=== PATIENT | male | born 1945 | race Caucasian/White ===

== ENCOUNTER 2020-08-04 10:17 | Day surgery (SDC) | payer OTHER ==
[~2020-08-04] VITALS: Ht 182.9 cm; Wt 127.0 kg
[~2020-08-04 10:17] MED LIST: ATROVENT 0.02%2.5 ML UPD; BAYER CHEWABLE81 MG PO; BETAPACE 80 MG80 MG PO; CARDIZEM120 MG PO; CELEXA40 MG PO; COUMADIN5 MG PO; DIABETA1.25 MG PO; GLUCOPHAGE1000 MG PO; HYDROCODONE-AP120 ML PO; HYDROCODONE/ACETAMIN; LANTUS INS100 UNITS/ SC; LANTUS SOL100 UNIT/1; LASIX20 MG; LIPITOR40 MG PO; NEURONTIN 100100 MG PO; NEURONTIN600 MG PO; PROTONIX40 MG PO; PROVENTIL/2.5 MG/3 M INH; XOPENEX 1.1.25 MG/3 UPD
[2020-08-04 10:42] LABS: BASOPHILS 0.2 % (0-2); EOSINOPHILS 3.1 % (0-7); HEMATOCRIT 44.8 % (42.0-54.0); HEMOGLOBIN 14.1 g/dL (13.5-17.5); IMMATURE GRANULOCYTES 0.2 % (0-5); LYMPHOCYTE ABS# 1.15 10x3/uL (1.32-3.57); LYMPHOCYTES 13.5 % (15-50); MCH 26.8 pg (26.0-34.0); MCHC 31.5 g/dL (31.0-37.0); MEAN PLATELET VOLUME 9.5 fL (7.4-10.4); MONOCYTES 7.8 % (2-11); NEUTROPHILS 75.2 % (40-80); PLATELET COUNT 196 10x3/uL (130-400); RBC 5.27 10x6/uL (4.20-6.10); RDW 14.6 % (11.5-14.5); WBC 8.5 10x3/uL (4.8-10.8)
[2020-08-04 10:50] LABS: ANION GAP 9.9 mmol/L (8-16); CALCIUM 8.7 mg/dL (8.5-10.1); CARBON DIOXIDE 29.2 mmol/L (21.0-32.0); CREATININE - SERUM 1.9 mg/dL (0.6-1.3); POTASSIUM - SERUM 4.1 mmol/L (3.5-5.1)
[2020-08-04 11:51] VITALS: BP 139/75; Ht 182.9 cm; Wt 127.0 kg
[2020-08-04] MEDS ORDERED: TARCEVA100 MG SC (12:15)
[2020-08-04] MEDS ORDERED: HYDROCODON-ACE1 EA10 PO (15:51)
[2020-08-04] MEDS ORDERED: BACTRIM DS TAB1 EAC1 PO (15:51)
--- NOTE | 2020-08-05 10:22 | OP ---
PATIENT NAME: LILIANA WILLIS MEDICAL RECORD: [id number] :49 LOCATION:D.OPS ADMISSION DATE: SURGEON: MARLY SOLITARIO DO DATE OF OPERATION: 08/04/2020 PROCEDURE PERFORMED: Right foot incision and debridement with Kerecis and wound VAC application. 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 INDICATIONS: Mr. Willis is a 75-year-old male who has I and D's of his foot. He is severely neuropathic and does not feel anything on the bottom of his foot. He had a 3 x 3 x 1 cm ulcer on the plantar surface of the foot. It was not healing. He was sent to me. I told him we could try some Kerecis and see if we get it to heal. He was informed of the risks of this including infection, bleeding, damage to nerves and vessels, need for further surgery, continued pain, nonhealing wound, need for below-knee amputation and even and he signed the consent. SURGEON: Marly Solitario DO DESCRIPTION OF PROCEDURE: The patient was taken to the operative suite, laid in supine position, given general anesthetic and LMA was placed. The right lower extremity was prepped and draped in sterile fashion. A timeout was performed. Everyone was in agreement of the correct side, site, patient and procedure. I then began by taking a #15 blade scalpel and going around the edge of the ulcer and getting a bleeding surface on the edge. I then used curettes and curetted out the ulcer itself on the bed and got good bleeding. I then irrigated with 2 liters normal saline and put in a 3 x 5 Kerecis and 3 x 7 Kerecis. I trimmed part of the 3 x 7 and stuffed it into the wound, it measured 3 x 3 x 1 cm. I then sutured it in with 4-0 Monocryl in a running stitch. I then dried and put Cavilon and then a Prevena Plus back on and secured into place. He was then wrapped with an Gama wrap. He was awakened and taken to recovery in stable condition. BLOOD LOSS: Minimal. COMPLICATIONS: None. TRANSINT:[id number] Voice Confirmation ID: [id number] DOCUMENT ID: [id number] MARLY SOLITARIO, at 1022 CC: [id number] DICTATION DATE: 08/04/20 1718 BUSINESS CENTER ATTENDANT: 08/05/20 0206 [facility] 08/04/[id number] [place] [address]
== END 2020-08-04 18:40 | disposition home or self-care (01) ==
LOC: D.OPS 10:17
PROVIDERS: Anesthesiology; ATTEND Orthopaedic Surgery
DX: L97.419 Non-pressure chronic ulcer of right heel and midfoot with unspecified severity (principal); M79.671 Pain in right foot; M14.671 Charcot's joint, right ankle and foot; E11.9 Type 2 diabetes mellitus without complications; I10 Essential (primary) hypertension

== ENCOUNTER → 2020-09-11 10:31 | Day surgery (SDC) | payer OTHER ==
[~2020-09-11] VITALS: Ht 182.9 cm; Wt 127.0 kg
[~2020-09-11 10:31] MED LIST changes: +BACTRIM DS TAB1 EAC1 PO; +BAYER CHEWABLE81 MG; +HYDROCODON-ACE1 EA10 PO; +TARCEVA100 MG SC
[2020-09-11 11:20] LABS: BASOPHILS 0.4 % (0-2); EOSINOPHILS 1.8 % (0-7); HEMATOCRIT 45.1 % (42.0-54.0); HEMOGLOBIN 14.4 g/dL (13.5-17.5); IMMATURE GRANULOCYTES 0.1 % (0-5); LYMPHOCYTE ABS# 0.99 10x3/uL (1.32-3.57); LYMPHOCYTES 13.8 % (15-50); MCH 26.7 pg (26.0-34.0); MCHC 31.9 g/dL (31.0-37.0); MCV 83.5 fL (80.0-100.0); MEAN PLATELET VOLUME 9.3 fL (7.4-10.4); MONOCYTES 7.3 % (2-11); NEUTROPHIL ABS# 5.48 10x3/uL (1.78-5.38); NEUTROPHILS 76.6 % (40-80); PLATELET COUNT 201 10x3/uL (130-400); RDW 14.9 % (11.5-14.5); WBC 7.2 10x3/uL (4.8-10.8)
[2020-09-11 11:22] LABS: ANION GAP 14.3 mmol/L (8-16); CALCIUM 8.7 mg/dL (8.5-10.1); CARBON DIOXIDE 26.3 mmol/L (21.0-32.0); CREATININE - SERUM 2.4 mg/dL (0.6-1.3); POTASSIUM - SERUM 4.6 mmol/L (3.5-5.1)
[2020-09-11 12:41] VITALS: BP 144/82; Ht 182.9 cm; Wt 127.0 kg
== END | disposition home or self-care (01) ==
LOC: D.OPS 10:31
PROVIDERS: Anesthesiology; ATTEND Orthopaedic Surgery
DX: L97.919 Non-pressure chronic ulcer of unspecified part of right lower leg with unspecified severity (principal); Z95.4 Presence of other heart-valve replacement; M14.671 Charcot's joint, right ankle and foot; Z53.9 Procedure and treatment not carried out, unspecified reason

== ENCOUNTER 2020-09-30 14:07 | Inpatient (IN) | payer OTHER ==
[2020-09-30] VITALS (8 sets, daily range): BP systolic 92–129; BP diastolic 51–64; BMI 37.4
[~2020-09-30] VITALS: Ht 182.9 cm; Wt 124.7 kg
[~2020-09-30 14:07] MED LIST changes: +CARDIZEM LA120 M1 PO; -CARDIZEM120 MG PO; +CELEXA20 MG; +ELIQUIS5 MG
[2020-09-30 15:08] LABS: BASOPHILS 0.7 % (0-2); HEMATOCRIT 41.5 % (42.0-54.0); HEMOGLOBIN 13.4 g/dL (13.5-17.5); LYMPHOCYTES 8.3 % (15-50); MCH 26.3 pg (26.0-34.0); MCHC 32.3 g/dL (31.0-37.0); MCV 81.5 fL (80.0-100.0); RBC 5.09 10x6/uL (4.20-6.10); RDW 15.8 % (11.5-14.5); WBC 14.9 10x3/uL (4.8-10.8)
[2020-09-30 15:17] LABS: APTT 25.4 SECONDS (22.8-39.4); INR 1.28 (0.85-1.17); PROTIME 14.9 SECONDS (11.6-15.0)
[2020-09-30 15:21] LABS: ANION GAP 12.3 mmol/L (8-16); CALCIUM 8.7 mg/dL (8.5-10.1); CARBON DIOXIDE 26.2 mmol/L (21.0-32.0); POTASSIUM - SERUM 4.5 mmol/L (3.5-5.1)
[2020-09-30 15:34] LABS: PLATELET COUNT 294 10x3/uL (130-400)
--- NOTE | 2020-09-30 16:21 | NUR ---
PATIENT IN ROOM AWAITING SURGERY, SNORING LOUDLY. SPOUSE AT BEDSIDE
--- NOTE | 2020-09-30 20:00 | NUR ---
PT ARRIVED FROM PACU VIA BED. SNORING LOUDLY, AWAKENS EASILY. DENIES PAIN. STATES THERE IS NUMBNESS TO LEFT LEG. CAP REFIL SLOW AT THIS TIME, WILL CONT TO MONITOR. LEFT LEG ELEVATED ON PILLOW AND APPLIED ICE. IV RIGHT AC INFUSING 1/2 NS @ 50. VSS. AT BEDSIDE. O2 2L/NC, PER PT HE WEARS 2L AT HOME. PROVIDED PT WITH WATER. PROVIDED INCENTIVE SPIROMETER, EDUCATED ON USE. PT DEMONSTRATED APPROPRIATE USE. ENCOURAGED PT TO USE WHILE AWAKE. PT VERBALIZED UNDERSTANDING. DENIES ANY NEEDS AT THIS TIME. CL IN REACH
[2020-10-01] VITALS: BP 106/62
[2020-10-01 01:21] VITALS: BMI 37.4
[2020-10-01] MEDS ORDERED: TRESIBA FL100 UNIT/1 SC (03:13)
[2020-10-01 04:00] VITALS: BP 115/57
--- NOTE | 2020-10-01 08:15 | NUR ---
PT. RESTING IN BED, AWAKE AND ALERT. IN ROOM. NO DISTRESS. IV INFUSING R. AC. DRIED, ROUNDED STAGE 2 ULCER NOTED TO BOTTOM OF R. HEEL. LLE WRAPPED WITH MARINA WRAP WITH EXTERNAL FIXATOR IN PLACE. PT. DENIES ANY PAIN AT THIS TIME. NO NEEDS VOICED. CL WITHIN REACH. SR UPX2.
--- NOTE | 2020-10-01 08:50 | OP ---
PATIENT NAME: LILIANA WILLIS MEDICAL RECORD: [id number] :49 LOCATION:D.[facility].2201 ADMISSION DATE: SURGEON: MARLY SOLITARIO DO DATE OF OPERATION: 09/30/2020 PROCEDURE PERFORMED: Left ankle open reduction internal fixation with external fixation also. PREOPERATIVE DIAGNOSIS: Left ankle fracture dislocation, trimalleolar likely chronic. POSTOPERATIVE DIAGNOSIS: Left ankle fracture dislocation, trimalleolar likely chronic. INDICATIONS: Mr. Willis is a 75-year-old male who suddenly discovered that his left leg was swelling. He said he has no idea when he did it or if he had done it recently or in the past. He got x-rays done at his primary care's office and showed a fracture dislocation with a trimalleolar fracture. He was then brought to the hospital and set up for surgery today. He has severe neuropathy, which is why he could not feel anything, and he likely he had this for a long time and I informed him that there is a high risk of infection and need for amputation, even with this due to his neuropathy and he was aware of that also the risk of bleeding, damage to nerves and vessels, need for further surgery, continued pain and blood clots and even and he signed a consent. SURGEON: Marly Solitario DO DESCRIPTION OF PROCEDURE: The patient was given a block by anesthesia and taken to the operative suite, laid in supine position, given very light sedation really MAC and given 2 grams of Ancef preoperatively. The left lower extremity was then prepped and draped in sterile fashion. A timeout was performed and everyone was in agreement with correct side, site, patient and procedure. Then, exsanguinated the left lower extremity with an Esmarch, tourniquet was inflated to 350 mmHg, it was up for 57 minutes. I then made an incision over the lateral malleolus, made careful dissection down to the fibula. Once getting to the fibula and the rest of his bone was extremely soft to the point where if I grabbed it with a clamp it would collapse due to the fact, I decided I would try the medial malleolus to see as it was way out as well. I opened it up and it was a little bit stronger than the lateral malleolus. At that point, I decided to put an external fixator on, put a pin through the calcaneus and 2 into the tibia and then pulled traction and then let it up to fix to medial malleolar screws to get the medial malleolus in the ballpark and somewhat reduced. I then pulled traction, tightened down the ex-fix with a lateral x-ray to ensure that the ankle was not dislocated. He had a large posterior mal piece as well that looked chronic in nature and was well-corticated. I then irrigated thoroughly, closed the medial and lateral side with a 2-0 Prolene in a modified Donati horizontal mattress fashion. We then cleaned everything up. I wrapped Xeroform gauze around the pin sites and then placed an ABD pad on the heel, wrapped the lower extremity with cast padding and Webril. Then, another ABD and cast padding on the heel. Cast padding all the way up and then put a 4 x 30 splint posteriorly and put a roll of cast padding underneath the heel to save the heel for ulcers and then secured with an Gama wrap. He was then taken to recovery in stable condition. Blood loss approximately 100 mL. OPERATIVE REPORT [id number] LILIANA WILLIS COMPLICATIONS: None. TRANSINT:[id number] Voice Confirmation ID: [id number] DOCUMENT ID: [id number] MARLY SOLITARIO DO at 0850 CC: [id number] DICTATION DATE: 09/30/20 1853 OUTREACH WORKER: 10/01/20 0326 [facility] [address] [id number]
[2020-10-01 09:32] LABS: BASOPHILS 0.4 % (0-2); EOSINOPHILS 1.5 % (0-7); HEMOGLOBIN 12.5 g/dL (13.5-17.5); LYMPHOCYTES 6.8 % (15-50); MCH 26.2 pg (26.0-34.0); MCV 81.7 fL (80.0-100.0); MEAN PLATELET VOLUME 6.8 fL (7.4-10.4); NEUTROPHILS 82.3 % (40-80); PLATELET COUNT 248 10x3/uL (130-400); RBC 4.78 10x6/uL (4.20-6.10); RDW 15.3 % (11.5-14.5); WBC 13.2 10x3/uL (4.8-10.8)
[2020-10-01 09:52] VITALS: BP 127/59
[2020-10-01 10:01] LABS: ALBUMIN 1.9 g/dL (3.4-5.0); ANION GAP 13.6 mmol/L (8-16); BILIRUBIN - TOTAL 0.6 mg/dL (0.2-1.3); CALCIUM 7.8 mg/dL (8.5-10.1); CARBON DIOXIDE 22.9 mmol/L (21.0-32.0); CREATININE - SERUM 1.9 mg/dL (0.6-1.3); POTASSIUM - SERUM 4.5 mmol/L (3.5-5.1); PROTEIN - SERUM 6.3 g/dL (6.4-8.2)
[2020-10-01 12:36] VITALS: BP 128/67
[2020-10-01 12:37] VITALS: Ht 182.9 cm; Wt 124.7 kg
[2020-10-01 16:33] VITALS: BP 138/66
[2020-10-01 20:12] VITALS: BP 130/58
[2020-10-02 04:00] VITALS: BP 137/68
[2020-10-02 07:14] LABS: ALBUMIN 1.8 g/dL (3.4-5.0); ANION GAP 11.4 mmol/L (8-16); BILIRUBIN - TOTAL 0.5 mg/dL (0.2-1.3); CALCIUM 7.8 mg/dL (8.5-10.1); CARBON DIOXIDE 24.4 mmol/L (21.0-32.0); CREATININE - SERUM 2.1 mg/dL (0.6-1.3); MAGNESIUM - SERUM 2.1 mg/dL (1.8-2.4); PROTEIN - SERUM 6.1 g/dL (6.4-8.2)
[2020-10-02 07:27] LABS: POTASSIUM - SERUM 3.8 mmol/L (3.5-5.1)
--- NOTE | 2020-10-02 08:40 | NUR ---
PT. RECEIVED RESTING IN BED, DENIES ANY PAIN OR NEEDS. IN ROOM. PT ALERT AND ORIENTED, SCDS ON. EXTERNAL FIXATOR TO LLE, SMALL AMOUNT OF BLOOD DRAINAGE NOTED ON THE HEEL. MARINA BANDAGE INTACT. IV INFUSING TO R. AC INTACT. ULCER NOTED TO R. HEEL BOTTOM, COVERED WITH BANDAGE. CL WITHIN REACH, SR UPX2
[2020-10-02 08:42] VITALS: BP 134/67
[2020-10-02 12:31] LABS: BILIRUBIN NEGATIVE (NEGATIVE); KETONE NEGATIVE (NEGATIVE); NITRITE NEGATIVE (NEGATIVE); UROBILINOGEN NORMAL mg/dL (< 2)
[2020-10-02 12:33] LABS: BACTERIA FEW HPF (NONE SEEN); WHITE CELLS - URINE 0-5 HPF (0-1)
[2020-10-02 12:53] VITALS: BP 133/71; BP 159/57
--- NOTE | 2020-10-02 13:13 | NUR ---
REHAB PRESCREEN RECEIVED. PATIENTS PT AND OT EVALS ARE STILL PENDING. I WILL REVISIT THIS CHART LATER TO SEE IF THEY ARE COMPLETED AND IF SO WILL START HIS CHART SCREEN. THANK YOU FOR THE REFERRAL. MALA PHIPPS RN CLINICAL LIAISON, INPATIENT REHAB.
--- NOTE | 2020-10-02 15:11 | NUR ---
RIGHT HEEL STAGE 2 ULCER MEASURED AT 2.54 CM WIDE, 3.04 CM LONG, 10.16 MM. COVERED WITH DRY 4X4 AND TAPE. NO DRAINAGE.
[2020-10-02 17:05] VITALS: BP 144/75
[2020-10-02 21:57] VITALS: BP 126/61
[2020-10-03 04:53] LABS: ALBUMIN 1.8 g/dL (3.4-5.0); ANION GAP 11.2 mmol/L (8-16); BILIRUBIN - TOTAL 0.47 mg/dL (0.2-1.3); CALCIUM 7.9 mg/dL (8.5-10.1); CARBON DIOXIDE 23.6 mmol/L (21.0-32.0); CREATININE - SERUM 1.9 mg/dL (0.6-1.3); MAGNESIUM - SERUM 2.1 mg/dL (1.8-2.4); POTASSIUM - SERUM 3.8 mmol/L (3.5-5.1); PROTEIN - SERUM 6.1 g/dL (6.4-8.2)
[2020-10-03 06:38] VITALS: BP 127/71
--- NOTE | 2020-10-03 09:09 | NUR ---
PT RESTING IN BED WITH SPOUSE AT BEDSIDE. RESP EVEN AND UNLABORED. SPOUSE ASSISTING PT WITH ADL'S. DENIES PAIN AT THIS TIME. IV TO RIGHT AC WITH 1/2 NS @ 50ML/HR INFUSING VIA PUMP. SITE WITHOUT REDNESS OR EDEMA. DRESSING TO LEFT LOWER EXTREMITY C/D/I WITH EXTERNAL FIXATOR INTACT. EXTREMITY WARM TO TOUCH. DENIES FURTHER NEEDS AT THIS TIME. CL WITHIN REACH. ENCOURAGED TO CALL WITH NEEDS. CONTINUE POC
[2020-10-03 09:28] VITALS: BP 133/78
[2020-10-03 12:16] VITALS: BP 141/77
[2020-10-03 17:08] VITALS: BP 143/65
[2020-10-03 20:00] VITALS: BP 130/68
[2020-10-04 00:53] VITALS: BP 144/74
[2020-10-04 04:00] VITALS: BP 133/72
[2020-10-04 07:51] LABS: ALBUMIN 1.8 g/dL (3.4-5.0); ANION GAP 10.7 mmol/L (8-16); BILIRUBIN - TOTAL 0.34 mg/dL (0.2-1.3); CALCIUM 7.3 mg/dL (8.5-10.1); CARBON DIOXIDE 25.3 mmol/L (21.0-32.0); CREATININE - SERUM 1.8 mg/dL (0.6-1.3); MAGNESIUM - SERUM 1.9 mg/dL (1.8-2.4); PROTEIN - SERUM 5.4 g/dL (6.4-8.2)
[2020-10-04 08:53] VITALS: BP 146/84
--- NOTE | 2020-10-04 08:57 | NUR ---
PT SITTING UP IN BED. RESP EVEN AND UNLABORED. REPORTS PAIN 3/10 AT THIS TIME. IV TO RIGHT AC WITH 1/2 NS @ 50ML/HR INFUSING VIA PUMP. SITE WITHOUT REDNESS OR EDEMA. DRESSING TO LEFT LOWER EXTREMITY C/D/I. EXTERNAL FIXATOR IN PLACE. PT ABLE TO MOVE TOES AND WARM TO TOUCH. DENIES FURTHER NEEDS AT THIS TIME. CL WITHIN REACH. ENCOURAGED TO CALL WITH NEEDS. CONTINUE POC
[2020-10-04 12:58] VITALS: BP 142/70
[2020-10-04 17:11] VITALS: BP 150/75
[2020-10-04 20:00] VITALS: BP 129/74
[2020-10-05] VITALS: BP 146/76
[2020-10-05 04:00] VITALS: BP 140/70
[2020-10-05 06:05] LABS: ALBUMIN 1.7 g/dL (3.4-5.0); ANION GAP 13.9 mmol/L (8-16); BILIRUBIN - TOTAL 0.28 mg/dL (0.2-1.3); CALCIUM 7.6 mg/dL (8.5-10.1); CREATININE - SERUM 1.6 mg/dL (0.6-1.3); MAGNESIUM - SERUM 1.7 mg/dL (1.8-2.4); POTASSIUM - SERUM 3.9 mmol/L (3.5-5.1); PROTEIN - SERUM 6.1 g/dL (6.4-8.2)
--- NOTE | 2020-10-05 07:08 | NUR ---
0700 BEDSIDE REPORT RECEIVED ASLEEP WITH EYES CLOSED FAMILY MEMBER AT BEDSIDE
--- NOTE | 2020-10-05 08:21 | NUR ---
0745 DR SOLITARIO AT BEDSIDE NEW ORDER FOR ELECTROLYTE PROTOCOL
--- NOTE | 2020-10-05 09:04 | NUR ---
WE ARE CONTINUING TO FOLLOW. PATIENT IS A MANAGED MEDICARE, WE WILL HAVE TO HAVE HIS OCCUPATIONAL THERAPY EVAL IN ORDER TO COMPLETE HIS SCREEN. I WILL GET WITH THEM TODAY TO SEE IF HE CAN BE BUMPED TO THE TOP OF THE LIST WE DID NOT HAVE OT AFTER 1200 ON MONDAY UNTIL TODAY. MALA PHIPPS RN CLINICAL LIAISON, INPATIENT REHAB.
[2020-10-05 09:29] LABS: BASOPHILS 1.4 % (0-2); EOSINOPHILS 4.1 % (0-7); HEMATOCRIT 37.3 % (42.0-54.0); LYMPHOCYTES 15.4 % (15-50); MCH 26.3 pg (26.0-34.0); MCHC 32.1 g/dL (31.0-37.0); MCV 81.9 fL (80.0-100.0); MEAN PLATELET VOLUME 7.2 fL (7.4-10.4); MONOCYTES 11.1 % (2-11); RBC 4.55 10x6/uL (4.20-6.10); RDW 15.3 % (11.5-14.5); WBC 8.7 10x3/uL (4.8-10.8)
[2020-10-05 09:35] LABS: PLATELET COUNT 306 10x3/uL (130-400)
[2020-10-05 10:07] VITALS: BP 144/69
[2020-10-05 12:50] VITALS: BP 148/82
[2020-10-05] MEDS ORDERED: FLORAJEN DIGES1 EACH PO (15:21)
[2020-10-05] MEDS ORDERED: PROTONIX40 MG PO (15:21)
[2020-10-05] MEDS ORDERED: HYDROCODON-ACE1 EA10 PO (15:21)
[2020-10-05] MEDS ORDERED: HYDROCODON-ACE1 EAC7 PO (15:21)
[2020-10-05] MEDS ORDERED: COLACE100 MG PO (15:21)
[2020-10-05] MEDS ORDERED: HUMALOG 30100 UNITS/ SC (15:22)
--- NOTE | 2020-10-05 15:29 | NUR ---
[facility] HAS APOROVED SEVEN DAYS OF IRF FOR THIS PATIENT. AUTH# [id number]. SCREEN IN [employer]. NOTIFIED VINNY GOTTI RN- RONALD LUCERO LPN, CLINICAL LIAISON
--- NOTE | 2020-10-05 17:54 | NUR ---
PATIENT ACCEPTED TO REHAB. ASSIGNED TO ROOM 1114. NOTIFIED ABRAN ON MED SURG AND MOISE SHIRLEY SUPERVISIOR.- RONALD LUCERO LPN, CLINICAL LIAISON
[2020-10-05 18:13] VITALS: BP 137/73
--- NOTE | 2020-10-05 18:21 | NUR ---
1815 ROOM ASSIGNED TO PATIENT IN REHAB 1114-B CALLED REPORT TO BISHOP SHAW CALLED FOR TRANSPORT
--- NOTE | 2020-10-06 08:08 | MORECARE ---
CASE MANAGEMENT DISCHARGE SUMMARY PATIENT: LILIANA WILLIS UNIT: [id number] ADM DATE: 09/30/20 AGE: 75 : 47 SEX: M ROOM/BED: D.2202 AUTHOR: TREVER,DOC PHYSICIAN: REFERRING PHYSICIAN: MARLY SOLITARIO DO DATE OF SERVICE: 10/06/20 Case Management Discharge Planning Summary DCP REVIEW SUMMARY ANTICIPATED D/C DATE: EXPECTED LOS : 0 CASE STATUS: DCP Complete INITIAL REVIEW: 10/01/2020 INITIAL REVIEWER: Lizzy Osuna FINAL DISCHARGE DISPOSITION: 62 : Discharged/Trans to Rehab Facility Including Distinct Units of a Hospital FINAL REVIEWER: Lizzy Osuna FINAL REVIEW DATE: 10/06/2020 DCP [facility] Questions & Answers QUESTION: ANSWER : PATIENT: LILIANA WILLIS ENCOUNTER: [id number] MEDICAL RECORD#: [id number] ADMISSION DATE: 09/30/2020 DISCHARGE DATE: 10/05/2020 ATTENDING MD: MARLY HALE : AGE: 75 MARITAL STATUS: M DC PLAN ID: [id number] FACILITY: [facility] PRINTED ON: 10/06/20 8:08 CT All edits/amendments must be made on the electronic document DICTATION DATE: 10/06/20807 [place] SUPERVISOR: JOSE MANUEL 10/06/20807 RPT#: [id number] DC DATE:10/05/20 STATUS: DIS IN [facility] [address] [place] [address] END OF REPORT
== END 2020-10-05 18:23 | DRG 494 ==
LOC: D.OPS 14:07 → D.MS 15:39 → D.OPS 19:03 → D.MS 19:03
PROVIDERS: Anesthesiology; Emergency Medicine; Family Medicine; ADMIT Orthopaedic Surgery; ATTEND Orthopaedic Surgery
PROC: 0QSH05Z Reposition Left Tibia with External Fixation Device, Open Approach (ICD-10-PCS; 2020-09-30)
PROC: 0QSK04Z Reposition Left Fibula with Internal Fixation Device, Open Approach (ICD-10-PCS; principal; 2020-09-30 14:00)
DX: S82.852A Displaced trimalleolar fracture of left lower leg, initial encounter for closed fracture (principal); X58.XXXA Exposure to other specified factors, initial encounter; I48.91 Unspecified atrial fibrillation; E11.22 Type 2 diabetes mellitus with diabetic chronic kidney disease; I12.9 Hypertensive chronic kidney disease with stage 1 through stage 4 chronic kidney disease, or unspecified chronic kidney disease; N18.30 Chronic kidney disease, stage 3 unspecified; D50.9 Iron deficiency anemia, unspecified; I25.10 Atherosclerotic heart disease of native coronary artery without angina pectoris; J44.9 Chronic obstructive pulmonary disease, unspecified; G89.29 Other chronic pain; M10.9 Gout, unspecified; F32.9 Major depressive disorder, single episode, unspecified; E11.51 Type 2 diabetes mellitus with diabetic peripheral angiopathy without gangrene; Z87.891 Personal history of nicotine dependence

== ENCOUNTER 2020-10-05 19:18 | Inpatient (IN) | payer MEDICARE ==
[~2020-10-05] VITALS: Ht 182.9 cm; Wt 124.7 kg
[~2020-10-05 19:18] MED LIST changes: +COLACE100 MG PO; +FLORAJEN DIGES1 EACH PO; +HUMALOG 30100 UNITS/ SC; +HYDROCODON-ACE1 EAC7 PO; +TRESIBA FL100 UNIT/1 SC
--- NOTE | 2020-10-05 19:51 | NUR ---
ADMIT FOR PHYSICAL REHAB AND SERVICES OF DR MONROE. AWAKE AND ALERT. RESTING IN BED WITH RESPIRAITONS UNLABROED. SALINE LOCK INTACT TO RIGHT FOREARM. LEFT ANKLE SPLINT WITH HARDWARE IN PLACE. NO DISTRESS NOTED. CALL LIGHT IN REACH.
[2020-10-05 20:30] VITALS: BP 158/68
[2020-10-05 21:11] VITALS: BP 158/68; BMI 37.4
[2020-10-06 05:19] LABS: BASOPHILS 0.7 % (0-2); EOSINOPHILS 3.4 % (0-7); HEMATOCRIT 37.3 % (42.0-54.0); HEMOGLOBIN 12.1 g/dL (13.5-17.5); LYMPHOCYTES 15.6 % (15-50); MCH 26.2 pg (26.0-34.0); MCHC 32.6 g/dL (31.0-37.0); MCV 80.5 fL (80.0-100.0); MEAN PLATELET VOLUME 6.5 fL (7.4-10.4); MONOCYTES 10.6 % (2-11); NEUTROPHILS 69.7 % (40-80); PLATELET COUNT 305 10x3/uL (130-400); RBC 4.63 10x6/uL (4.20-6.10); RDW 15.1 % (11.5-14.5); WBC 8.9 10x3/uL (4.8-10.8)
[2020-10-06 05:33] LABS: ANION GAP 13.2 mmol/L (8-16); CALCIUM 8.2 mg/dL (8.5-10.1); CREATININE - SERUM 1.8 mg/dL (0.6-1.3); POTASSIUM - SERUM 4.2 mmol/L (3.5-5.1)
--- NOTE | 2020-10-06 06:31 | NUR ---
QUEIT HOURS. NO ACUTE CHANGES IN CONDITION THIS SHIFT. RESTING IN BED WITH NO DISTRESS NOTED.
--- NOTE | 2020-10-06 08:00 | NUR ---
SHIFT ASSMT COMPLETED,CL IN REACH.BREAKFAST GIVEN.
[2020-10-06 08:40] VITALS: BP 133/76
--- NOTE | 2020-10-06 12:00 | NUR ---
SITTING UP IN BED EATING LUNCH.
[2020-10-06 14:21] VITALS: Ht 182.9 cm; Wt 124.7 kg
--- NOTE | 2020-10-06 16:00 | NUR ---
SPENCER THERAPY.WILL CONT TO MONITOR.
--- NOTE | 2020-10-06 20:00 | NUR ---
AWAKE AND ALERT. RESTING IN BED WITH RESPIRATIONS UNLABORED. NO DISTRESS NOTED. CASTING AND DRESSING AND HARDWARE INTACT TO LEFT ANKLE. DRESSING AND BOOT INTACT TO RIGHT FOOT, PLACED PER DR ORTIZ. SALINE LOCK IN RIGHT FOREARM INTACT.
[2020-10-06 20:25] VITALS: BP 135/64
--- NOTE | 2020-10-06 22:30 | NUR ---
ASSISTED TO BATHROOM AND HE HAD A LARGE BM. ASSISTED BACK TO BED. IV SITE TO RIGHT ARM WAS BLEEDING AND DISLODGED. IV DC'D WITH CANNULA INTACT.
--- NOTE | 2020-10-07 04:56 | NUR ---
QUIET HOURS. NO ACUTE CHANGES IN CONDITION THIS SHIFT. RESTING IN BED WITH NO DISTRESS NOTED. CALL LIGHT IN REACH. DRESSINGS INTACT TO RIGHT FOOT AND LEFT ANKLE.
[2020-10-07 07:36] LABS: BASOPHILS 0.8 % (0-2); EOSINOPHILS 3.6 % (0-7); HEMATOCRIT 37.9 % (42.0-54.0); HEMOGLOBIN 12.4 g/dL (13.5-17.5); LYMPHOCYTES 18.6 % (15-50); MCH 26.4 pg (26.0-34.0); MCHC 32.7 g/dL (31.0-37.0); MCV 80.7 fL (80.0-100.0); MEAN PLATELET VOLUME 6.8 fL (7.4-10.4); MONOCYTES 10.2 % (2-11); NEUTROPHILS 66.8 % (40-80); PLATELET COUNT 305 10x3/uL (130-400); RDW 15.2 % (11.5-14.5); WBC 8.4 10x3/uL (4.8-10.8)
[2020-10-07 07:46] VITALS: BP 136/73
--- NOTE | 2020-10-07 08:00 | NUR ---
SHIFT ASSMT COMPLETED
[2020-10-07 08:19] LABS: ANION GAP 13.8 mmol/L (8-16); CALCIUM 7.9 mg/dL (8.5-10.1); CARBON DIOXIDE 25.3 mmol/L (21.0-32.0); CREATININE - SERUM 1.6 mg/dL (0.6-1.3); POTASSIUM - SERUM 4.1 mmol/L (3.5-5.1)
--- NOTE | 2020-10-07 15:44 | NUR ---
CARE TEAM MEETING: PATIENT IS NEW TO UNIT AND WILL BE RA AT NEXT MEETING. HIS PCP IS DR. NAYLOR. DISCHARGE PLANS ARE FOR HIM TO RETURN TO HIS HOME WITH FAMILY. WILL CONTINUE TO FOLLOW WITH PATIENT.
--- NOTE | 2020-10-07 20:01 | NUR ---
AWAKE AND ALERT. RESTING IN BED WITH RESPIRATIONS UNLABORED. DRESSING/CAST/HARDWARE IN PLACE TO LEFT ANKLE FRACTURE. DRESSING INTACT TO RIGGHT FOOT WOUND. ICE PACK TO LEFT HAND PER HIS REQUEST DUE TO NEUROPATHY PAIN. CALL LIGHT IN REACH.
[2020-10-07 20:45] VITALS: BP 148/83
--- NOTE | 2020-10-08 05:16 | NUR ---
QUIET HOURS. NO ACUTE CHANGES IN CONDIITION THIS SHIFT. NO ACUTE DISTRESS NOTED. CAST/DRESSING IN PLACE TO LEFT LEG. DRESSING INTACT TO RIGHT FOOT.
--- NOTE | 2020-10-08 08:00 | NUR ---
PATIENT IS ALERT/ORIENT. SITTING UP IN BED TO EAT BREAKFAST. CALL LIGHT WITHIN REACH. VOICES NO NEED AT THIS TIME. WILL CONTINUE WITH PLAN OF CARE
[2020-10-08 08:39] VITALS: BP 142/81
--- NOTE | 2020-10-08 11:00 | NUR ---
PATIENT IN REHAB ROOM. WORKING WITH PHYSICAL THERAPIST. DENIES ANY PAIN/DISC AT THIS TIME.
[2020-10-08 21:35] VITALS: BP 150/83
--- NOTE | 2020-10-08 23:33 | NUR ---
PT IN BED WATCHING TV, A&O, NO NEEDS NOTED, FLUIDS/CL WITHIN REACH,
[2020-10-09 07:09] LABS: BASOPHILS 0.7 % (0-2); EOSINOPHILS 4.2 % (0-7); HEMOGLOBIN 13.3 g/dL (13.5-17.5); LYMPHOCYTES 25.3 % (15-50); MCH 26.7 pg (26.0-34.0); MCHC 33.2 g/dL (31.0-37.0); MCV 80.2 fL (80.0-100.0); MEAN PLATELET VOLUME 6.9 fL (7.4-10.4); MONOCYTES 9.4 % (2-11); NEUTROPHILS 60.4 % (40-80); PLATELET COUNT 284 10x3/uL (130-400); RBC 4.99 10x6/uL (4.20-6.10); RDW 15.4 % (11.5-14.5); WBC 8.8 10x3/uL (4.8-10.8)
[2020-10-09 07:15] LABS: ANION GAP 9.9 mmol/L (8-16); CALCIUM 8.7 mg/dL (8.5-10.1); CARBON DIOXIDE 28.1 mmol/L (21.0-32.0); CREATININE - SERUM 1.7 mg/dL (0.6-1.3)
[2020-10-09 08:00] VITALS: BP 152/85
--- NOTE | 2020-10-09 18:00 | NUR ---
ASSESSMENT COMPLETED EARLIER THIS SHIFT. PATIENT HAS PARTICIPATED IN THERAPY THIS SHIFT. HAS HAD C/O PAIN- SEE JUN. CHANGED DRSG TO LT FOOT/ANKLE- HAD DR MANCERA FOREST NURSERY SUPERVISOR FOR DR SOLITARIO TO COME SEE & ADJUST THE EXTERNAL FIXATURE- THE LEFT OUTER ANKLE AREA HAS A NOTED PRESSURE AREA DUE TO BAR- HAS BEEN READJUSTED PER MD. DRESSING CHANGED PER MD ORDERS. CONTINUE TO MONITOR, CONT W/ CURRENT PLAN OF CARE.
--- NOTE | 2020-10-09 19:34 | NUR ---
AWAKE AND ALERT. RESTING IN BED WITH RESPIRATIONS UNLABORED. NO DISTRESS NOTED. DRESSING AND EXTERNAL HARDWARE INTACT TO LEFT LOWER LEG. DRESSING INTACT TO RIGHT FOOT. CALL LIGHT IN REACH.
[2020-10-09 19:55] VITALS: BP 146/68
--- NOTE | 2020-10-10 05:03 | NUR ---
QUIET HOURS. NO ACUTE CHANGES IN CONDITION THIS SHIFT. RESTING IN BED WITH RESPIRATIONS UNLABORED. DRESSINGS INTACT TO LEFT LEG AND RIGHT FOOT. NO DISTRESS NOTED.
[2020-10-10 07:00] VITALS: BP 120/67
[2020-10-10 07:39] LABS: BASOPHILS 0.7 % (0-2); EOSINOPHILS 4.5 % (0-7); HEMOGLOBIN 12.5 g/dL (13.5-17.5); LYMPHOCYTES 22.6 % (15-50); MCH 26.1 pg (26.0-34.0); MCHC 32.2 g/dL (31.0-37.0); MCV 81.1 fL (80.0-100.0); MEAN PLATELET VOLUME 6.7 fL (7.4-10.4); MONOCYTES 7.5 % (2-11); NEUTROPHILS 64.7 % (40-80); PLATELET COUNT 275 10x3/uL (130-400); RDW 15.4 % (11.5-14.5); WBC 7.8 10x3/uL (4.8-10.8)
[2020-10-10 07:50] LABS: CALCIUM 8.4 mg/dL (8.5-10.1); CARBON DIOXIDE 26.1 mmol/L (21.0-32.0); CREATININE - SERUM 1.9 mg/dL (0.6-1.3); MAGNESIUM - SERUM 1.8 mg/dL (1.8-2.4); POTASSIUM - SERUM 4.1 mmol/L (3.5-5.1)
--- NOTE | 2020-10-10 08:00 | NUR ---
SHIFT ASSMT COMPLETED.
[2020-10-10 19:00] VITALS: BP 144/75
--- NOTE | 2020-10-10 20:13 | NUR ---
RESTING IN BED, NO DISTRESS NOTED, DRESSING TO L ANKLE DRY AND INTACT, REQUESTING PAIN MED
[2020-10-11 07:00] VITALS: BP 148/80
--- NOTE | 2020-10-11 13:16 | RHP ---
PATIENT: LILIANA WILLIS MEDICAL RECORD: [id number] ACCOUNT: [id number] LOCATION:[facility] : 49 ADMISSION DATE: 10/05/20 REHABILITATION HISTORY AND PHYSICAL EXAMINATION POST ADMISSION PHYSICIAN EXAMINATION ADMITTING DIAGNOSES: Left ankle fracture. HISTORY OF PRESENT ILLNESS: The patient is a 75-year-old gentleman who discovered his left leg was swollen on 09/30. He said he had no idea how he injured his leg. He got x-rays done at the primary care office that showed a fracture dislocation with a trimalleolar fracture. He was brought to [facility] and set up for same day surgery, underwent ORIF of his left ankle and is now nonweightbearing. Prior to this, he functioned independently using his lawn tractor and full size tractor in order to keep his 20+ acres at his home. He reports only using the cane when he goes to the doctor. He has severe neuropathy, which is why I could not feel his injured leg. He has also got a history of diabetes mellitus, hypertension, coronary artery disease, valve replacement, hyperlipidemia, atrial fib, peripheral arterial disease, chronic pain, gout, osteoarthritis and depression. also reports a wound to his right foot that requires wound care as well. His hospital stay has been significant for pain control. He is nonweightbearing on his left lower extremity, unable to hop, requires a pivot with mod assist x2 for transfers. He is unable to maintain standing balance while attempting closed management. The patient requires therapy to improve his mobility, strength, and balance to facilitate a safe discharge home. Barriers to his discharge Include deficits in ADLs, poor safety awareness, multiple comorbidities and high fall risk. Active comorbidities include atrial fib, anxiety, anemia, arthritis, coronary artery disease, COPD, decreased mobility, depression, diabetic neuropathy, difficulty walking, essential hypertension, diabetes, falls, reflux, hyperlipidemia, hypertension, obstructive sleep apnea, peripheral arterial disease, pain, protein-calorie malnutrition, and weakness. PAST MEDICAL HISTORY: Significant for neuropathy. He has got a history of diabetes, hypertension, coronary artery disease, aortic valve problems, hyperlipidemia, atrial fib, peripheral arterial disease, chronic kidney disease stage III, COPD, obstructive sleep apnea, chronic pain, gout, osteoarthritis and depression. PAST SURGICAL HISTORY: Includes aortic valve replacement and now open reduction internal fixation of his ankle. ALLERGIES: PLAVIX, VANCOMYCIN, LEVAQUIN, AND ACTOS. CURRENT MEDICATIONS: Include Floranex one cap daily. He is on Cardizem 120 mg daily, citalopram 20 mg daily, atorvastatin 40 mg daily, Protonix 40 mg daily, Eliquis 5 mg b.i.d. He is on an intermediate resistant sliding scale Humalog, Neurontin 600 mg t.i.d., Colace 100 mg b.i.d., Uriah 5/325 one tab q.4 hours p.r.n. pain. HABITS: No alcohol or tobacco use. FAMILY HISTORY: Noncontributory. SOCIAL HISTORY: The patient hopes to return back home and get back to his prior HISTORY AND PHYSICAL [id number] LILIANA WILLIS level of functioning. REVIEW OF SYSTEMS: GENERAL: He does complain of weakness and fatigue. HEENT: Denies cold, cough, congestion. CARDIOVASCULAR: Denies any chest pain. PHYSICAL EXAMINATION: VITAL SIGNS: Stable, afebrile. GENERAL: A somewhat obese gentleman in no acute distress, alert upon exam. HEENT: Normocephalic and atraumatic. Mucosa moist. NECK: Supple with no lymphadenopathy. LUNGS: Clear in upper [place]. No wheezing or rales. HEART: Irregular rate and rhythm. ABDOMEN: Soft, benign, nondistended. Positive bowel sounds x4. EXTREMITIES: No clubbing, cyanosis. He has postop edema that is within normal limits. NEUROLOGIC: He is noted to have severe neuropathy below both of his knees. LABORATORY DATA: His white count is 8.9, H&H of 12 and 37 and platelet count is noted to be 305. His sodium is 139, potassium 4.2, BUN and creatinine of 36 and 1.8, and blood sugar is noted to be 206. ASSESSMENT: This is a 75-year-old gentleman admitted to the rehab with a working diagnosis status post ORIF and internal fixation of malleolar fracture of his ankle. The patient has potential to make improvements. We instituted the following multidisciplinary therapies including, but not limited to physical, occupational, respiratory, speech, nutritional services, prosthetics and orthotics. Given his complex medical condition and risks for more complications, rehabilitation services cannot be provided at a low level of care such as alf facility. [facility] to include the following disciplines: A. Physical therapy to improve gait, all transfer skills and bed mobility to a modified independent level. B. Occupational therapy to improve activities of daily living. C. Case management to help with discharge planning and placement options. D. Nutrition to assist with nutritional needs. E. Rehabilitation nursing to assist in monitoring the patient's underlying medical conditions and to assist with any type of bowel or bladder management. 1. The patient's current medication and medical care will be continued. 2. Will be placed on standard fall precautions. 3. Will continue his Eliquis for deep vein thrombosis and stroke prophylaxis. 4. I will see again in the a.m. I will go and check vitamin D levels on him and follow up his blood sugars and discuss his case tomorrow with care team. TRANSINT:[id number] Voice Confirmation ID: [id number] DOCUMENT ID: [id number] DEEPAK notes whether there has been none or any medical/functional change since admission: - No change since preadmission screen. HISTORY AND PHYSICAL [id number] LILIANA WILLIS attests patient continues to be appropriate for IRF: - Continues to be appropriate. DEJUAN MONROE MD at 1316 CC: [id number] DICTATION DATE: 10/06/20 1028 QUALITY CONTROL CHECKER: 10/06/20 1152 ADM IN [id number] [place] [address]
[2020-10-11 19:00] VITALS: BP 145/78
--- NOTE | 2020-10-11 22:18 | NUR ---
RESTING IN BED, NO DISTRESS NOTED, DRESSING CHANGED TO EXTERNAL FIXATOR, SPENCER WELL, NO S/S OF INFECTION, CONT TO MONITOR PAIN AND SAFETY ISSUES
[2020-10-12 07:49] LABS: BASOPHILS 0.5 % (0-2); EOSINOPHILS 4.8 % (0-7); HEMATOCRIT 38.5 % (42.0-54.0); HEMOGLOBIN 12.5 g/dL (13.5-17.5); LYMPHOCYTES 18.3 % (15-50); MCHC 32.4 g/dL (31.0-37.0); MCV 80.2 fL (80.0-100.0); MONOCYTES 7.1 % (2-11); NEUTROPHILS 69.3 % (40-80); PLATELET COUNT 256 10x3/uL (130-400); WBC 8.3 10x3/uL (4.8-10.8)
[2020-10-12 08:00] LABS: ANION GAP 10.2 mmol/L (8-16); CALCIUM 8.6 mg/dL (8.5-10.1); CARBON DIOXIDE 27.9 mmol/L (21.0-32.0); CREATININE - SERUM 1.6 mg/dL (0.6-1.3); POTASSIUM - SERUM 4.1 mmol/L (3.5-5.1)
--- NOTE | 2020-10-12 08:19 | NUR ---
PATIENT IS ALERT/ORIENT. CALL LIGHT WITHIN REACH. VOICES NO NEEDS AT THIS TIME. WILL CONTINUE WITH PLAN OF CARE
[2020-10-12 08:22] VITALS: BP 167/86
--- NOTE | 2020-10-12 09:46 | NUR ---
SPOKE WITH PATIENT THIS AM AND HE WOULD LIKE TO DC 10/13/20 TO HIS HOME . HE HAS DECLINED HOME HEALTH AT THIS TIME. CLINICAL UPDATES FAXED TO [facility] , AUTH. # [id number] WITH FAX CONFORMATION RECIEVED. WILL CONTINUE TO FOLLOW WITH PATIENT.
--- NOTE | 2020-10-12 10:17 | NUR ---
PATIENT IN REHAB ROOM. WORKING WITH PHYSICAL THERAPIST. DENIES ANY PAIN/DISC AT THIS TIME.
--- NOTE | 2020-10-12 13:43 | NUR ---
Nutrition Re-Assessment Diet: Diabetic PO intake: 100% x last 9 meals Last BM: 10/11/20 Wt: 275# (10/06/20) Meds noted: probiotics, SSI Labs noted: POC Glu 248(H), Glu 191(H), GFR 45(L), BUN 30(H), Cr 1.6(H) Estimated nutrition needs: 2300-2750cal (25-30kcal/kg Adj), 55-74gms protein (0.6-0.8gms/kg), 2300-2750mL fluid (or per MD) Nutrition diagnosis: Altered nutrition related lab values r/t T2DM AEB elevated blood glucose. Nutrition goals: -PO intake =/>75% meals -meet fluid needs -stable dry weight or appropriate weight loss Recommendations/Interventions: -Recommend continue current diet. Will continue to honor food preferences within diet restrictions. -RD will follow-up within 7 days.
[2020-10-12] MEDS ORDERED: HYDROCODON-ACE1 EA10 PO (17:26)
--- NOTE | 2020-10-12 18:18 | NUR ---
DR. MONROE INTO SEE PATIENT. NEW ORDERS RECEIVED TO DISCHARGE PATIENT TOMORROW.
--- NOTE | 2020-10-12 18:33 | NUR ---
I have reviewed this patient and I concur with the Shift Assessment completed by the Licensed Practical Nurse today this shift.
--- NOTE | 2020-10-12 19:26 | NUR ---
AWAKE AND ALERT. IN BATHROOM AND HAD A LARGE BM. RESPIRATION UNLABORED. DRESSING INTACT TO LEFT LEG WITH EXTERNAL HARDWARE IN PLACE. DRESSING INTACT TO RIGHT FOOT. NO ACUTE DISTRESS NOTED.
[2020-10-12 20:51] VITALS: BP 149/71
[2020-10-13 08:23] VITALS: BP 143/74
--- NOTE | 2020-10-13 09:03 | NUR ---
PATIENT DISCHARGING HOME TODAY WITH FAMILY.PATIENT DECLINES HOME HEALTH OR ANY DME NEEDS AT THIS TIME. DR. NAYLOR 10/19/20 @ 3:30, DR. SOLITARIO 10/22/20 @ 10:40. MASOOD SIGNED, IMM SERVED AND EXPLAINED, ONE GIVEN TO PATIENT AND ONE FILED IN CHART. DISCHARGE INSTRUCTIONS FAXED TO [facility] , AUTH. # [id number] AND REVIEWED WITH PATIENT.
--- NOTE | 2020-10-13 13:24 | NUR ---
PT DISCHARGE INSTRUCTIONS REV'D AND PT STATES UNDERSTANDING. PT GIVEN HARD SCRIPT FOR [facility]. PT SPOUSE HERE TO TAKE PT HOME. PT ESCORTED OUT VIA WHEELCHAIR BY HOSPITAL STAFF.
--- NOTE | 2020-10-14 10:50 | NUR ---
SPOKE WITH DR. BARFIELD AND HE WANTED TO SEE PATIENT EARLY NEXT WEEK. APPOINTMENT WAS MADE FOR OCTOBER 19 AT 11:00. PATIENT WAS NOTIFIED AND HE REFUSED APPOINTMENT. STATES HE HAS OTHER APOINTMENTS AND HE WILL FOLLOW UP WITH DR. BURK IF HE SEES THE NEED.
== END 2020-10-13 13:25 | disposition home or self-care (01) | DRG 560 ==
LOC: D.REHAB 19:18
PROVIDERS: ADMIT Emergency Medicine; ATTEND Emergency Medicine
DX: S82.852D Displaced trimalleolar fracture of left lower leg, subsequent encounter for closed fracture with routine healing (principal); E46 Unspecified protein-calorie malnutrition; X58.XXXD Exposure to other specified factors, subsequent encounter; I48.91 Unspecified atrial fibrillation; D64.9 Anemia, unspecified; I25.10 Atherosclerotic heart disease of native coronary artery without angina pectoris; J44.9 Chronic obstructive pulmonary disease, unspecified; I10 Essential (primary) hypertension; K21.9 Gastro-esophageal reflux disease without esophagitis; E78.5 Hyperlipidemia, unspecified; F41.9 Anxiety disorder, unspecified; M19.90 Unspecified osteoarthritis, unspecified site; F32.9 Major depressive disorder, single episode, unspecified; E11.40 Type 2 diabetes mellitus with diabetic neuropathy, unspecified; R26.2 Difficulty in walking, not elsewhere classified; Z91.81 History of falling; I12.9 Hypertensive chronic kidney disease with stage 1 through stage 4 chronic kidney disease, or unspecified chronic kidney disease; E11.22 Type 2 diabetes mellitus with diabetic chronic kidney disease; N18.9 Chronic kidney disease, unspecified; Z68.37 Body mass index [BMI] 37.0-37.9, adult